=== PATIENT | female | born 1940 | race Caucasian/White ===

== ENCOUNTER 2023-02-19 11:50 | Emergency (ER) | payer MEDICARE, BC, SELFPAY ==
[2023-02-19 11:54] VITALS: BP 212/66; PULSE 69; RESP 18; TEMP 36.4; O2SAT 97; BMI 29.0
--- NOTE | 2023-02-19 12:01 | CRLHL7_ITS ---
For Patients: As a result of the Century Cures Act, medical imaging exams and procedure reports are released immediately into your electronic medical record. You may view this report before your referring provider. If you have questions, please contact your health care provider. INDICATION: Fall on February 13, head trauma TECHNIQUE: CT head without contrast. COMPARISON: None. FINDINGS: CSF spaces: Within normal limits for age. Brain parenchyma: The smith-white differentiation is normal. No sign of mass, hemorrhage, or midline shift. Skull base and calvarium: The visualized paranasal sinuses and mastoid air cells demonstrate no acute or significant findings. The visualized orbits are grossly unremarkable. No skull fractures. Atherosclerosis. 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 IMPRESSION: Unremarkable noncontrast head CT. No intracranial bleed or mass effect. Please note that all CT scans at this facility use dose modulation, iterative reconstruction, and/or weight-based dosing when appropriate to reduce radiation dose to as low as reasonably achievable. Dictated by Kin Joyner MD @ 02/19/2023 12:53:26 PM (Electronically Signed)
--- NOTE | 2023-02-19 12:27 | ED_ITS ---
HPI - General Adult General Date Seen: 02/19/23 Chief complaint: Head Injury/Pain Stated complaint: Fall Thursday, head injury Time Seen by Provider: 02/19/23 12:00 Source: patient Mode of arrival: ambulatory Limitations: no limitations History of Present Illness HPI narrative: Patient is an 82-year-old woman here with her daughter for evaluation of head injury. Will be 1 week tomorrow since her fall. She did not have loss of consciousness, has not had any vomiting or severe headache. She does have a pressure sensation in her head and she says she feels ?foggy. She has been taking ibuprofen, does not take any other blood thinners. She also has pain in her left knee from hitting the ground, she says that she is able to walk on it, does not have concerns that anything is broken but does note that the knee is still sore. She has bruising on her forehead and has developed a black eye and is concerned that these have not resolved although they are much better than they were. Related Data Home Medications Medication Instructions Recorded Confirmed amlodipine 2.5 mg tablet 2.5 mg PO DAILY 02/19/23 02/19/23 hydrochlorothiazide 12.5 mg capsule 12.5 mg PO DAILY 02/19/23 02/19/23 losartan 100 mg tablet 100 mg PO DAILY 02/19/23 02/19/23 metformin 02/19/23 metoprolol succinate 25 mg 12.5 mg PO DAILY 02/19/23 02/19/23 tablet,extended release 24 hr Allergies Allergy/AdvReac Type Severity Reaction Status Date / Time furosemide [From Lasix] Allergy Verified 02/19/23 12:00 iodine Allergy Verified 02/19/23 12:00 Review of Systems Status of ROS: Reports: 6 or more systems reviewed and unremarkable except as noted in History and below PFSH PFS Social History Smoking Status: Never smoker How often do you have a drink containing alcohol: 2-4 times a month How many standard drinks containing alcohol do you have on a typical day: 1 or 2 AUDIT-C Alcohol total score: 2 Non-prescribed substance use: denies use Exam Narrative: Exam Narrative: Vital signs as noted above. In general, an alert, well-appearing patient. Head: Normocephalic. Resolving bruise on the right forehead with a little bit of surrounding swelling. Eyes: Pupils are equal reactive. Extraocular movements are full. Conjunctivae are normal. Periorbital contusion on the right. ENT: Mucous membranes are moist. No bony tenderness or deformity. Neck: Supple without lymphadenopathy. Nontender palpation. Heart: Regular rate and rhythm. No murmur or rub. Lungs: Clear bilaterally. No increased work of breathing, crackles or wheezes. Abdomen: Soft and nontender. No organomegaly. Extremities: Well perfused. No edema. No calf tenderness. Pulses intact. Bruising noted over the right knee and some tenderness in that area but no tenderness with lateral compression of the patella, she has stiffness which she says is chronic, no significant effusion. Neurologic: Patient is alert and oriented to person and place. Speech is fluent. Face is symmetric. Moves all extremities equally. Affect: Normal. Skin: Warm and dry. Well perfused. Const: Vital Signs, click to edit/add: Vital Signs - 24 hr 02/19/23 11:54 Temperature 97.6 F Pulse Rate [Right Pulse Oximeter] 69 Respiratory Rate 18 Blood Pressure [Ri ght Upper Arm] 212/66 H Pulse Oximetry 97 Oxygen Delivery Me thod Room Air Documenting provider has reviewed patient's vital signs: yes Course Course Hospital Course: I did elect to do a head CT which by my review was negative, final radiology read is negative for any signs of hemorrhage or other acute findings. We discussed the natural history of concussion, would anticipate symptoms will improve over the next few weeks, can certainly follow up with primary care if she is continuing to have difficulty. Ibuprofen or Tylenol is okay if needed for symptoms. She does not feel that she needs imaging of the knee pressure. Return for acute worsening. Vital Signs Vital signs: Initial Vital Signs Temperature 97.6 F 02/19/23 11:54 Temperature Source Temporal Artery Scan 02/19/23 11:54 Pulse Rate 69 02/19/23 11:54 Respiratory Rate 18 02/19/23 11:54 Blood Pressure 212/66 H 02/19/23 11:54 Blood Pressure Mean 114 H 02/19/23 11:54 Blood Pressure Position Sitting 02/19/23 11:54 Pulse Oximetry 97 02/19/23 11:54 Oxygen Delivery Method Room Air 02/19/23 11:54 Vital Signs Temperature 97.6 F 02/19/23 11:54 Pulse Rate 69 02/19/23 11:54 Respiratory Rate 18 02/19/23 11:54 Blood Pressure 212/66 H 02/19/23 11:54 Pulse Oximetry 97 02/19/23 11:54 Oxygen Delivery Method Room Air 02/19/23 11:54 Temperature 97.6 F 02/19/23 11:54 Pulse Rate 69 02/19/23 11:54 Respiratory Rate 18 02/19/23 11:54 Blood Pressure 212/66 H 02/19/23 11:54 Pulse Oximetry 97 02/19/23 11:54 Oxygen Delivery Method Room Air 02/19/23 11:54 Discharge Plan Discharge Clinical Impression: Concussion without loss of consciousness Patient Disposition: Home, Self-Care Condition: Stable Instructions: Concussion (ED) Additional Instructions: Okay to take Tylenol or ibuprofen if needed. See your doctor if not improving over the next weeks. Return any time for acute worsening, severe pain, vomiting, mental status changes. Prescriptions: No Action metformin amlodipine 2.5 mg tablet 2.5 mg PO DAILY hydrochlorothiazide 12.5 mg capsule 12.5 mg PO DAILY losartan 100 mg tablet 100 mg PO DAILY metoprolol succinate 25 mg tablet extended release 24 hr 12.5 mg PO DAILY Follow Up/Referrals: Provider,Not a Local [Primary Care Provider] - Stand Alone Forms: [employer] Info Instructions
[2023-02-19 13:12] VITALS: BP 182/77; PULSE 62; RESP 20; TEMP 37
== END 2023-02-19 13:14 | disposition home or self-care (01) ==
PROVIDERS: Emergency Provider Emergency Medicine
DX: S06.0X0A Concussion without loss of consciousness, initial encounter (principal); W18.30XA Fall on same level, unspecified, initial encounter; M25.561 Pain in right knee
CPT/HCPCS: 70450; 99283; 99284